=== PATIENT | male | born 1935 | race Caucasian/White ===

== ENCOUNTER 2016-10-23 19:27 | Observation (INO) | payer MEDICARE ==
[2016-10-23] MEDS ORDERED: SODIUM CHLORIDE 0.9% 500 ML IV STA (19:46)
[2016-10-23 20:26] LABS: Basophils % (A) 0 %; CH 31.6; CHCM 35.2; Eosinophils # (A) 0.1 k/uL (0-0.7); Eosinophils % (A) 1 %; HDW 2.41; HGB 13.6 gm/dL (13.0-17.5); Luc # (Auto) 0.07; Luc % (Auto) 1; Lymphocytes # (A) 0.8 k/uL (1.0-4.8); Lymphocytes % (A) 10 %; MCH 30.8 pg (25.0-35.0); MCHC 34.2 g/dL (31.0-37.0); MCV 90.1 fL (80.0-100.0); Mean Platelet Volume 7.1; Monocytes # (A) 0.5 k/uL (0-1.0); Monocytes % (A) 6 %; Neutrophils # (A) 6.1 k/uL (1.3-7.7); Neutrophils % (A) 82 %; RBC 4.43 m/uL (4.30-5.90); RDW 14.5 % (11.5-15.5); WBC 7.5 k/uL (3.8-10.6); WBC (Perox) 7.57
[2016-10-23 20:34] LABS: ALT 34 U/L (21-72); AST 18 U/L (17-59); Alkaline Phosphatase 80 U/L (38-126); Anion Gap 11 mmol/L; Blood Urea Nitrogen 13 mg/dL (9-20); Carbon Dioxide 28 mmol/L (22-30); Chloride 98 mmol/L (98-107); Glucose 106 mg/dL (74-99); Magnesium 1.8 mg/dL (1.6-2.3); Non-African American GFR(MDRD) >60 (>60 ml/min/1.73 sqM); Potassium 3.5 mmol/L (3.5-5.1); Sodium 137 mmol/L (137-145); Total Bilirubin 0.3 mg/dL (0.2-1.3); Total Protein 6.2 g/dL (6.3-8.2)
[2016-10-23 20:35] LABS: Glucose,Whole Blood 101 mg/dL (75-99)
--- NOTE | 2016-10-23 20:35 | XR ---
EXAMINATION TYPE: XR chest 2V DATE OF EXAM: 10/23/2016 COMPARISON: NONE HISTORY: Syncope and dizziness. TECHNIQUE: Frontal and lateral views of the chest are obtained. FINDINGS: There is chronic parenchymal change without suspicious focal air space opacity, pleural ef fusion, or pneumothorax seen. The cardiac silhouette size is upper limits of normal. The osseous s tructures are demineralized. Multilevel spurring in the spine is present. IMPRESSION: Chronic changes without acute pulmonary process.
[2016-10-23 20:44] LABS: Appearance,Urine Clear (Clear); Bilirubin,Urine Negative (Negative); Glucose,Urine (UA) Negative (Negative); Ketones,Urine Negative (Negative); Leukocyte Esterase,Urine Negative (Negative); Mucus,Urine Rare /hpf; Nitrite,Urine Negative (Negative); Particle Count 1519; Protein,Urine Negative (Negative); RBC,Urine 4 /hpf (0-5); Specific Gravity,Urine 1.015 (1.001-1.035); UA Billing (MACRO vs. MICRO) MICRO; Urobilinogen,Urine <2.0 mg/dL (<2.0); WBC,Urine 1 /hpf (0-5)
[2016-10-23 20:52] LABS: Creatine Kinase 64 U/L (55-170)
[2016-10-23 21:04] LABS: Creatine Kinase MB 1.2 ng/mL (0.0-2.4); Troponin I <0.012 ng/mL (0.000-0.034)
[2016-10-23 21:21] LABS: Partial Thromboplastin Time 24.2 sec (22.0-30.0); Prothrombin Time 10.2 sec (9.0-12.0)
--- NOTE | 2016-10-23 21:25 | CT ---
EXAMINATION TYPE: CT brain wo con DATE OF EXAM: 10/23/2016 HISTORY: Syncope. CT DLP: 995.9 mGycm. Automated Exposure Control for Dose Reduction was Utilized. TECHNIQUE: CT scan of the head is performed without contrast. COMPARISON: None. FINDINGS: There is no acute intracranial hemorrhage or midline shift identified. There is diffuse v entricular and sulcal prominence consistent with diffuse age-related cerebral atrophy. There is low- attenuation in the periventricular white matter consistent with chronic small vessel ischemic change. Probable prominent Virchow-Guillermo space inferior left external capsule on axial image 20 versus small lacunar infarct. Vascular calcification of distal internal carotid arteries is present bilaterally. Near-complete opacification left mastoid air cells is present. Soft tissue density bilateral external auditory canals is felt to reflect cerumen, left greater than right. Visualized paranasal sinuses ar e clear. Both lenses are thinned. IMPRESSION: No acute intracranial hemorrhage or midline shift. There is mild to moderate diffuse ag e-related cerebral atrophy and fairly moderate chronic small vessel ischemic change noted. Possible left-sided mastoiditis, clinical correlation advised.
[2016-10-23] MEDS ORDERED: NALOXONE 0.4 MG/ML 1 ML VIAL IV PRN (21:35)
[2016-10-23] MEDS ORDERED: ONDANSETRON 4 MG/2 ML VIAL IVP PRN (21:35)
[2016-10-23] MEDS ORDERED: ACETAMINOPHEN TAB 325 MG TAB PO PRN (21:35)
[2016-10-23] MEDS ORDERED: ASPIRIN 325 MG TAB PO STA (21:40)
[2016-10-23] MEDS ORDERED: DEXTROSE 5%-0.45% NACL 1,000 ML IV SCH (21:45)
[2016-10-23] MEDS ORDERED: ATORVASTATIN 20 MG TAB PO STA (21:46)
[2016-10-23] MEDS ORDERED: LISINOPRIL 5 MG TAB PO STA (21:46)
--- NOTE | 2016-10-23 21:56 | ED ---
General Adult HPI - General Chief complaint: Dizziness Stated complaint: Syncope Time Seen by Provider: 10/23/16 19:34 Source: patient, family, EMS, RN notes reviewed Mode of arrival: EMS Limitations: no limitations - History of Present Illness Initial comments: 81-year-old male history hypertension, hypercholesterolemia, and CAD presents with episode of lightheadedness. Patient states he was at a restaurant. An episode lasting approximately 10 minutes of lightheadedness and near syncopal. Patient is unable to state whether or not the room was spinning. Unable to specifically differentiate between vertigo and near syncope. Denies chest pain or shortness of breath. Denies palpitations. Denies fever or chills. Denies nausea vomiting or diarrhea. Patient has had several these episodes over the past several weeks. - Related Data Allergies Allergy/AdvReac Type Severity Reaction Status Date / Time No Known Allergies Allergy Verified 10/23/16 21:45 Review of Systems ROS Statement: Those systems with pertinent positive or pertinent negative responses have been documented in the HPI. ROS Other: All systems not noted in ROS Statement are negative. Past Medical History Past Medical History: Hyperlipidemia, Hypertension History of Any Multi-Drug Resistant Organisms: None Reported Past Surgical History: Orthopedic Surgery Additional Past Surgical History / Comment(s): bowel blockage, knee Past Psychological History: No Psychological Hx Reported Smoking Status: Former smoker Past Alcohol Use History: Occasional Past Drug Use History: None Reported General Exam Limitations: no limitations General appearance: alert, in no apparent distress Head exam: Present: atraumatic, normocephalic Eye exam: Present: normal appearance, PERRL. Absent: scleral icterus, conjunctival injection ENT exam: Present: normal exam, mucous membranes moist Neck exam: Present: normal inspection, tenderness Respiratory exam: Present: normal lung sounds bilaterally. Absent: respiratory distress, wheezes, rales Cardiovascular Exam: Present: regular rate, normal rhythm GI/Abdominal exam: Present: soft. Absent: distended, tenderness, guarding Extremities exam: Present: normal inspection, full ROM, normal capillary refill. Absent: pedal edema Neurological exam: Present: alert, oriented X3, CN II-XII intact, other (No ataxia). Absent: motor sensory deficit Psychiatric exam: Present: normal affect, normal mood Skin exam: Present: warm, dry. Absent: cyanosis, diaphoretic Course Vital Signs 10/23/16 10/23/16 19:41 20:49 Temperature 98.2 F Pulse Rate 71 67 Respiratory 16 16 Rate Blood Pressure 185/88 174/84 O2 Sat by Pulse 98 99 Oximetry - Reevaluation(s) Reevaluation #1: 10/23/16 21:52 Patient remains asymptomatic on reevaluation. Sinus rhythm on the monitor, nonfocal neurologic exam. 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 No associated symptoms. Patient is on several these episodes over the past several weeks. 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 Laboratory studies including CMP, CBC, cardiac enzymes, and urinalysis is unremarkable Chest x-ray shows no acute process, CT of the head shows moderate chronic ischemic changes and age associated cerebral atrophy. No acute intracranial hemorrhage or mass effect. Patient is asymptomatic on emergency department. Patient will be placed in observation for cardiology evaluation, as well as evaluation by neurology for concern of VBI. Diagnosis: Near-syncope - Lab Data Result diagrams: 10/23/16 20:15 10/23/16 20:15 Lab Results 10/23/16 10/23/16 10/23/16 Range/Units 20:15 20:15 20:15 WBC 7.5 (3.8-10.6) k/uL RBC 4.43 (4.30-5.90) m/uL Hgb 13.6 (13.0-17.5) gm/dL Hct 40.0 (39.0-53.0) % MCV 90.1 (80.0-100.0) fL MCH 30.8 (25.0-35.0) pg MCHC 34.2 (31.0-37.0) g/dL RDW 14.5 (11.5-15.5) % Plt Count 166 (150-450) k/uL Neutrophils % 82 % Lymphocytes % 10 % Monocytes % 6 % Eosinophils % 1 % Basophils % 0 % Neutrophils # 6.1 (1.3-7.7) k/uL Lymphocytes # 0.8 L (1.0-4.8) k/uL Monocytes # 0.5 (0-1.0) k/uL Eosinophils # 0.1 (0-0.7) k/uL Basophils # 0.0 (0-0.2) k/uL PT (9.0-12.0) sec INR (<1.2) APTT (22.0-30.0) sec Sodium 137 (137-145) mmol/L Potassium 3.5 (3.5-5.1) mmol/L Chloride 98 (98-107) mmol/L Carbon Dioxide 28 (22-30) mmol/L Anion Gap 11 mmol/L BUN 13 (9-20) mg/dL Creatinine 0.70 (0.66-1.25) mg/dL Est GFR (MDRD) Af Amer >60 (>60 ml/min/1.73 sqM) Est GFR (MDRD) Non-Af >60 (>60 ml/min/1.73 sqM) Glucose 106 H (74-99) mg/dL POC Glucose (mg/dL) (75-99) mg/dL POC Glu Associate Automation Engineer ID Calcium 9.0 (8.4-10.2) mg/dL Magnesium 1.8 (1.6-2.3) mg/dL Total Bilirubin 0.3 (0.2-1.3) mg/dL AST 18 (17-59) U/L ALT 34 (21-72) U/L Alkaline Phosphatase 80 (38-126) U/L Total Creatine Kinase 64 (55-170) U/L CK-MB (CK-2) 1.2 (0.0-2.4) ng/mL CK-MB (CK-2) Rel Index 1.9 Troponin I <0.012 (0.000-0.034) ng/mL Total Protein 6.2 L (6.3-8.2) g/dL Albumin 3.9 (3.5-5.0) g/dL Urine Color Urine Appearance (Clear) Urine pH (5.0-8.0) Ur Specific [place] (1.001-1.035) Urine Protein (Negative) Urine Glucose (UA) (Negative) Urine Ketones (Negative) Urine Blood (Negative) Urine Nitrite (Negative) Urine Bilirubin (Negative) Urine Urobilinogen (<2.0) mg/dL Ur Leukocyte Esterase (Negative) Urine RBC (0-5) /hpf Urine WBC (0-5) /hpf Urine Mucus (None) /hpf 10/23/16 10/23/16 10/23/16 Range/Units 20:15 20:24 20:33 WBC (3.8-10.6) k/uL RBC (4.30-5.90) m/uL Hgb (13.0-17.5) gm/dL Hct (39.0-53.0) % MCV (80.0-100.0) fL MCH (25.0-35.0) pg MCHC (31.0-37.0) g/dL RDW (11.5-15.5) % Plt Count (150-450) k/uL Neutrophils % % Lymphocytes % % Monocytes % % Eosinophils % % Basophils % % Neutrophils # (1.3-7.7) k/uL Lymphocytes # (1.0-4.8) k/uL Monocytes # (0-1.0) k/uL Eosinophils # (0-0.7) k/uL Basophils # (0-0.2) k/uL PT 10.2 (9.0-12.0) sec INR 1.0 (<1.2) APTT 24.2 (22.0-30.0) sec Sodium (137-145) mmol/L Potassium (3.5-5.1) mmol/L Chloride (98-107) mmol/L Carbon Dioxide (22-30) mmol/L Anion Gap mmol/L BUN (9-20) mg/dL Creatinine (0.66-1.25) mg/dL Est GFR (MDRD) Af Amer (>60 ml/min/1.73 sqM) Est GFR (MDRD) Non-Af (>60 ml/min/1.73 sqM) Glucose (74-99) mg/dL POC Glucose (mg/dL) 101 H (75-99) mg/dL POC Glu Associate Automation Engineer ID Rosamaria Lincoln Calcium (8.4-10.2) mg/dL Magnesium (1.6-2.3) mg/dL Total Bilirubin (0.2-1.3) mg/dL AST (17-59) U/L ALT (21-72) U/L Alkaline Phosphatase (38-126) U/L Total Creatine Kinase (55-170) U/L CK-MB (CK-2) (0.0-2.4) ng/mL CK-MB (CK-2) Rel Index Troponin I (0.000-0.034) ng/mL Total Protein (6.3-8.2) g/dL Albumin (3.5-5.0) g/dL Urine Color Yellow Urine Appearance Clear (Clear) Urine pH 6.0 (5.0-8.0) Ur Specific [place] 1.015 (1.001-1.035) Urine Protein Negative (Negative) Urine Glucose (UA) Negative (Negative) Urine Ketones Negative (Negative) Urine Blood Small H (Negative) Urine Nitrite Negative (Negative) Urine Bilirubin Negative (Negative) Urine Urobilinogen <2.0 (<2.0) mg/dL Ur Leukocyte Esterase Negative (Negative) Urine RBC 4 (0-5) /hpf Urine WBC 1 (0-5) /hpf Urine Mucus Rare H (None) /hpf Disposition Clinical Impression: Syncope, near Disposition: ADMITTED IP TO THIS HOSP Condition: Stable Referrals: Vitaliy Mckinney MD [Primary Care Provider] - 1-2 days Decision to Admit Reason: Admit from EC Decision Date: 10/23/16 Decision Time: 21:55
[2016-10-24 03:15] LABS: Creatine Kinase MB 1.4 ng/mL (0.0-2.4); Troponin I 0.014 ng/mL (0.000-0.034)
--- NOTE | 2016-10-24 08:51 | P.CRDCN ---
History of Present Illness Consult date: 10/24/16 Chief complaint: Dizziness and lightheadedness History of present illness: This is a pleasant 81-year-old gentleman with a past medical history significant for CAD and prior stenting with unknown details at this point, hypertension, and dyslipidemia, presented to the hospital complaining of dizziness and lightheadedness and near syncope. He was in his usual state of health where he was eating dinner in a restaurant yesterday when he felt dizzy and lightheaded and almost passing out. He did not have any symptoms of chest pain or discomfort for or shortness of breath and he did not have any syncope. He states that he has been experiencing more dizziness and lightheadedness lately. Reviewing the blood pressure during his hospitalization showed uncontrolled hypertension. 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 The cardiac enzymes were checked and came in to be unremarkable. The chest x-ray showed no acute abnormalities. Past Medical History Past Medical History: Hyperlipidemia, Hypertension History of Any Multi-Drug Resistant Organisms: None Reported Past Surgical History: Orthopedic Surgery Additional Past Surgical History / Comment(s): bowel blockage, knee Past Anesthesia/Blood Transfusion Reactions: No Reported Reaction Past Psychological History: No Psychological Hx Reported Smoking Status: Former smoker Past Alcohol Use History: Occasional Past Drug Use History: None Reported Medications and Allergies Home Medications Medication Instructions Recorded Confirmed Type Aspirin 81 mg PO DAILY 10/24/16 10/24/16 History Atorvastatin [Lipitor] 10 mg PO HS 10/24/16 10/24/16 History Ezetimibe [Ezetimibe] 5 mg PO QAM 10/24/16 10/24/16 History Lisinopril-Hctz 20-12.5 mg 12.5 mg PO QAM 10/24/16 10/24/16 History [Zestoretic 20-12.5] amLODIPine BES/OLMESARTAN MED 40 mg PO QAM 10/24/16 10/24/16 History [amLODIPine BES/OLMESARTAN MED 5-40 mg] Allergies Allergy/AdvReac Type Severity Reaction Status Date / Time No Known Allergies Allergy Verified 10/23/16 21:45 Physical Exam Vitals: Vital Signs Temp Pulse Pulse Resp BP BP Pulse Ox 10/24/16 08:11 98.0 F 56 L 16 163/75 98 10/24/16 02:37 97.5 F L 54 L 16 154/77 99 10/23/16 22:31 97.8 F 66 16 178/83 99 10/23/16 22:06 98.0 F 68 16 160/75 97 10/23/16 20:49 67 16 174/84 99 10/23/16 19:41 98.2 F 71 16 185/88 98 Intake and Output 10/23/16 10/24/16 10/24/16 22:59 06:59 14:59 Intake Total 500 Balance 500 Intake: Intake, IV Titration 500 Amount Dextrose 5%-0.45% NaCl 1, 500 000 ml @ 50 mls/hr IV . [facility] Rx#:[id number] Other: Voiding Method Toilet # Voids 1 Weight 70.307 kg - Constitutional General appearance: no acute distress - Respiratory Respiratory: bilateral: CTA - Cardiovascular Rhythm: regular Heart sounds: normal: S1, S2 Results 10/23/16 20:15 10/23/16 20:15 Cardiac Enzymes 10/23/16 10/23/16 10/24/16 Range/Units 20:15 20:15 02:01 AST 18 (17-59) U/L CK-MB (CK-2) 1.2 1.4 (0.0-2.4) ng/mL Troponin I <0.012 0.014 (0.000-0.034) ng/mL Coagulation 10/23/16 Range/Units 20:15 PT 10.2 (9.0-12.0) sec APTT 24.2 (22.0-30.0) sec CBC 10/23/16 Range/Units 20:15 WBC 7.5 (3.8-10.6) k/uL RBC 4.43 (4.30-5.90) m/uL Hgb 13.6 (13.0-17.5) gm/dL Hct 40.0 (39.0-53.0) % Plt Count 166 (150-450) k/uL Comprehensive Metabolic Panel 10/23/16 Range/Units 20:15 Sodium 137 (137-145) mmol/L Potassium 3.5 (3.5-5.1) mmol/L Chloride 98 (98-107) mmol/L Carbon Dioxide 28 (22-30) mmol/L BUN 13 (9-20) mg/dL Creatinine 0.70 (0.66-1.25) mg/dL Glucose 106 H (74-99) mg/dL Calcium 9.0 (8.4-10.2) mg/dL AST 18 (17-59) U/L ALT 34 (21-72) U/L Alkaline Phosphatase 80 (38-126) U/L Total Protein 6.2 L (6.3-8.2) g/dL Albumin 3.9 (3.5-5.0) g/dL Current Medications Generic Name Dose Route Start Last Admin Trade Name Freq PRN Reason Stop Dose Admin Acetaminophen 650 mg 10/23/16 21:35 Tylenol Tab PO Q6HR PRN Mild Pain or Fever > 100.5 Dextrose/Sodium Chloride 1,000 mls @ 50 mls/hr 10/23/16 21:45 10/23/16 22:32 Dextrose 5%-1/2ns Iv Soln IV 50 mls/hr .Q20H [facility]AT[facility] Administration Naloxone HCl 0.2 mg 10/23/16 21:35 Narcan IV Q2M PRN Opioid Reversal Ondansetron HCl 4 mg 10/23/16 21:35 Zofran IVP Q8HR PRN Nausea And Vomiting Intake and Output 10/23/16 10/24/16 10/24/16 22:59 06:59 14:59 Intake Total 500 Balance 500 Intake: Intake, IV Titration 500 Amount Dextrose 5%-0.45% NaCl 1, 500 000 ml @ 50 mls/hr IV . Q20H [facility] Rx#:[id number] Other: Voiding Method Toilet # Voids 1 Weight 70.307 kg 10/23/16 20:15 10/23/16 20:15 Assessment and Plan Plan: This is a pleasant 81-year-old gentleman with known CAD and prior stenting, hypertension, dyslipidemia, was admitted to the hospital was dizziness and lightheadedness and presyncope. The blood pressure in the hospital has been elevated but the blood pressure medications at home were not resume. I will resume that. We'll continue monitor the blood pressure and adjust medication accordingly. Beside that I will obtain orthostatic blood pressure on him. I would get a carotid duplex study and also an echocardiogram was Doppler. 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 We will continue following up with him and thank you for allowing us participate in his care
[2016-10-24 08:56] LABS: Creatine Kinase 63 U/L (55-170)
[2016-10-24 09:07] LABS: Creatine Kinase MB 1.3 ng/mL (0.0-2.4); Troponin I <0.012 ng/mL (0.000-0.034)
[2016-10-24] MEDS ORDERED: amLODIPine 5 MG TAB PO SCH (11:00)
[2016-10-24] MEDS: LOSARTAN 50 MG TAB PO SCH (11:48)
[2016-10-24] MEDS: EZETIMIBE 10 MG TAB PO SCH (11:49)
[2016-10-24] MEDS: ASPIRIN 81 MG CHEW PO SCH (11:49)
[2016-10-24] MEDS: LISINOPRIL-HCTZ 20-12.5 MG 1 EACH TAB PO SCH (11:49)
--- NOTE | 2016-10-24 13:42 | US ---
EXAMINATION TYPE: US carotid duplex BILAT DATE OF EXAM: 10/24/2016 COMPARISON: NONE CLINICAL HISTORY: pre syncope. EXAM MEASUREMENTS: RIGHT: Peak Systolic Velocity (PSV) cm/sec ----- Right CCA: 77.6 ----- Right ICA: 139.2 ----- Right ECA: 127.6 ICA/CCA ratio: 1.8 RIGHT: End Diastole cm/sec ----- Right CCA: 9.5 ----- Right ICA: 0.0 ----- Right ECA: 14.5 LEFT: Peak Systolic Velocity (PSV) cm/sec ----- Left CCA: 96.9 ----- Left ICA: 111.3 ----- Left ECA: 147.4 ICA/CCA ratio: 1.1 LEFT: End Diastole cm/sec ----- Left CCA: 10.2 ----- Left ICA: 12.8 ----- Left ECA: 11.7 VERTEBRALS (direction of flow): Right Vertebral: antegrade Left Vertebral: antegrade IMPRESSION: 1. 50-69% by diameter stenosis of the proximal right ICA. 2. Elevated flow velocities, both ECAs. Criteria for Assigning % of Stenosis / Diameter reduction (Estimation based on the indirect measurements of the internal carotid artery velocities (ICA PSV). 1. Normal (no stenosis)=ICA PSV < 125 cm/s: ratio < 2.0: ICA EDV<40 cm/s. 2. Less than 50% stenosis=ICA PSV < 125 cm/s: ratio < 2.0: ICA EDV<40 cm/s. 3. 50 to 69% stenosis=ICA PSV of 125 to 230 cm/s: ration 2.0 ? 4.0: ICA EDV 40-100 cm/s. 4. Greater than 70% stenosis to near occlusion= ICA PSV > 230 cm/s: ratio > 4.0: ICA EDV > 100 cm/s. 5. Near occlusion= ICA PSV velocities may be low or undetectable: variable ratio and ICA EDV. 6. Total occlusion=unable to detect flow.
--- NOTE | 2016-10-24 14:19 | P.HPIM ---
History of Present Illness H&P Date: 10/24/16 Chief Complaint: near-syncope This is an 81-year-old male one of Dr. 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 Review of Systems Constitutional: Denies anorexia, Denies lethargy, Denies malaise, Denies weight gain, Denies weight loss Eyes: denies blurred vision, denies bulging eye, denies decreased vision, denies diplopia Ears: bilateral: decreased hearing Ears, nose, mouth and throat: Denies dysphagia, Denies neck lump, Denies swelling in throat, Denies sore throat, Denies vertigo Cardiovascular: Reports high blood pressure, Denies chest pain, Denies dyspnea on exertion, Denies edema, Denies paroxysmal nocturnal dyspnea, Denies phlebitis , Denies rapid heart beat, Denies shortness of breath Respiratory: Denies congestion, Denies cough, Denies cough with sputum, Denies home oxygen, Denies respiratory infections, Denies sleep apnea, Denies snoring Gastrointestinal: Denies abdominal pain, Denies bloating, Denies BRBPR, Denies heartburn, Denies hematemesis, Denies melena, Denies nausea, Denies vomiting Genitourinary: Denies dysuria, Denies nocturia, Denies polyuria Musculoskeletal: Denies myalgias Musculoskeletal: absent: ankle pain, ankle stiffness, ankle swelling, elbow pain , elbow stiffness, elbow swelling, foot pain, foot stiffness, foot swelling, hand pain, hand stiffness, hand swelling, hip pain, hip stiffness, hip swelling , knee pain, knee stiffness, knee swelling, shoulder pain, shoulder stiffness, shoulder swelling, wrist pain, wrist stiffness, wrist swelling Integumentary: Denies pruritus, Denies rash Neurological: Denies numbness, Denies weakness Psychiatric: Denies anxiety, Denies depression Endocrine: Denies fatigue, Denies weight change Past Medical History Past Medical History: Coronary Artery Disease (CAD), Hyperlipidemia, Hypertension, Neurologic Disorder (trigeminal neuralgia.), Osteoarthritis (OA) History of Any Multi-Drug Resistant Organisms: None Reported Past Surgical History: Bowel Resection, Orthopedic Surgery Additional Past Surgical History / Comment(s): Bilateral cataract surgery, left knee IND due to staph infection, exploratory laparotomy with bowel resection secondary to bowel obstruction. Past Anesthesia/Blood Transfusion Reactions: No Reported Reaction Past Psychological History: No Psychological Hx Reported Smoking Status: Never smoker Past Alcohol Use History: Occasional Past Drug Use History: None Reported - Past Family History Mother Family Medical History: Hypertension (mother at age of 87 from hypertension.) Father Family Medical History: CVA/TIA (father at age of 86 from CVA.) Brother(s) Family Medical History: No Reported History (patient had one brother who at age 95 from old age.) Sister(s) Family Medical History: No Reported History (patient had one sister who at age of 84 from old age.) Daughter(s) Family Medical History: No Reported History (patient has one daughter no major medical problems.) Son(s) Family Medical History: No Reported History (patient has one son no major medical problems.) Medications and Allergies Home Medications Medication Instructions Recorded Confirmed Type Aspirin 81 mg PO DAILY 10/24/16 10/24/16 History Atorvastatin [Lipitor] 10 mg PO HS 10/24/16 10/24/16 History Ezetimibe [Ezetimibe] 5 mg PO QAM 10/24/16 10/24/16 History Lisinopril-Hctz 20-12.5 mg 1 tab PO QAM 10/24/16 10/24/16 History [Zestoretic 20-12.5] amLODIPine BES/OLMESARTAN MED 1 tab PO QAM 10/24/16 10/24/16 History [amLODIPine BES/OLMESARTAN MED 5-40 mg] carBAMazepine 200 mg PO BID 10/24/16 10/24/16 History Allergies Allergy/AdvReac Type Severity Reaction Status Date / Time No Known Allergies Allergy Verified 10/24/16 09:00 Physical Exam Vitals: Vital Signs Temp Pulse Pulse Resp BP BP Pulse Ox 10/24/16 08:11 98.0 F 56 L 16 163/75 98 10/24/16 02:37 97.5 F L 54 L 16 154/77 99 10/23/16 22:31 97.8 F 66 16 178/83 99 10/23/16 22:06 98.0 F 68 16 160/75 97 10/23/16 20:49 67 16 174/84 99 10/23/16 19:41 98.2 F 71 16 185/88 98 Intake and Output 10/23/16 10/24/16 10/24/16 22:59 06:59 14:59 Intake Total 500 Balance 500 Intake: Intake, IV Titration 500 Amount Dextrose 5%-0.45% NaCl 1, 500 000 ml @ 50 mls/hr IV . Q20H [facility] Rx#:[id number] Other: Voiding Method Toilet # Voids 1 Weight 70.307 kg - Constitutional General appearance: no acute distress - EENT Eyes: anicteric sclerae, EOMI, PERRLA, no ptosis, no scleral icterus, normal appearance ENT: hearing grossly normal, NA/AT, normal oropharynx, no thrush Ears: bilateral: normal - Neck Neck: no lymphadenopathy, normal ROM, no rigidity, no stridor, no thyromegaly Carotids: bilateral: upstroke delayed Thyroid: bilateral: normal size - Respiratory Respiratory: bilateral: diminished, negative: dullness, rales, rhonchi, wheezing , prolonged expiration - Cardiovascular Rhythm: regular Heart sounds: normal: S1, S2 Abnormal Heart Sounds: systolic murmur, no rub, no S3 Gallop, no S4 Gallop, no click - Gastrointestinal General gastrointestinal: normal bowel sounds, no rigid, no scaphoid, soft, no splenomegaly, no tenderness, no umbilical hernia, no ventral hernia - Genitourinary Male genitourinary: enlarged prostate - Integumentary Integumentary: normal, normal turgor - Neurologic Neurologic: CNII-XII intact - Musculoskeletal Musculoskeletal: strength equal bilaterally - Psychiatric Psychiatric: A&O x's 3, appropriate affect, intact judgment & insight Results CBC & Chem 7: 10/23/16 20:15 10/23/16 20:15 Labs: Abnormal Lab Results - Last 24 Hours (Table) 10/23/16 10/23/16 10/23/16 Range/Units 20:15 20:15 20:24 Lymphocytes # 0.8 L (1.0-4.8) k/uL Glucose 106 H (74-99) mg/dL POC Glucose (mg/dL) (75-99) mg/dL Total Protein 6.2 L (6.3-8.2) g/dL Urine Blood Small H (Negative) Urine Mucus Rare H (None) /hpf 10/23/16 Range/Units 20:33 Lymphocytes # (1.0-4.8) k/uL Glucose (74-99) mg/dL POC Glucose (mg/dL) 101 H (75-99) mg/dL Total Protein (6.3-8.2) g/dL Urine Blood (Negative) Urine Mucus (None) /hpf Thrombosis Risk Factor Assmnt - DVT/VTE Prophylaxis DVT/VTE Prophylaxis: Pharmacologic Prophylaxis ordered, Mechanical Prophylaxis ordered - Choose All That Apply Any of the Below Risk Factors Present?: No Other Risk Factors: Yes Each Risk Factor Represents 3 Points: Age 75 years or older Thrombosis Risk Factor Assessment Total Risk Factor Score: 3 Thrombosis Risk Factor Assessment Level: Moderate Risk Assessment and Plan Plan: Assessment and plan: 1. Near syncope and a patient with a prior history of CAD and an EKG showing trifascicular block, patient was admitted to the hospital, telemetry, cardiac enzymes were negative, echocardiogram, ultrasound of the carotids, patient will need to go for an event recorder when he leaves the hospital, cardiology consultation. 2. History of CAD post-PCI. Into the patient on aspirin 81 mg once every day, Lipitor 10 mg orally once every day, check echocardiogram. 3. Hypertension and hypertensive cardiovascular disease. Continue losartan 150 mg orally once every day, amlodipine 5 mg orally once every day, patient is currently on lisinopril 20/12.5 mg orally once every day. 4. Hyperlipidemia. Continue Lipitor 10 mg orally once every day. 5. Trigeminal neuralgia. Continue patient on carbamazepine 200 mg orally twice every day. 6. C-spine fracture by history in October 2015. Stable at this time. 7. DVT prophylaxis. Lovenox 40 mg subcutaneously every 24 hours. 8. GI prophylaxis. Continue PPI. 9. Admit as observation. 10. Patient is full code.
--- NOTE | 2016-10-24 15:21 | P.CONS ---
History of Present Illness - Reason for Consult Consult date: 10/24/16 Dizziness - History of Present Illness This Is an 81-year-old male being evaluated by the neurology service for a complaint of dizziness and presyncope. He does have a significant Cardiac history for which he is being monitored. He does give a long history of short-lived episodes that occur periodically and are more consistent with vertigo. This time he gives a history of several episodes of happening over the course of the afternoon or there was dizziness lightheadedness and feeling off balance. Computed tomography scan of the brain showed no acute intracranial abnormalities. It did show some cerebral atrophy and chronic small vessel ischemic changes. There was also an incidental finding of possible left mastoiditis. Doppler showed 50-69% proximal right internal carotid artery stenosis within decreased velocities bilateral of the external carotid arteries. Review of Systems All systems: negative Past Medical History Past Medical History: Coronary Artery Disease (CAD), Hyperlipidemia, Hypertension, Neurologic Disorder (trigeminal neuralgia.), Osteoarthritis (OA) History of Any Multi-Drug Resistant Organisms: None Reported Past Surgical History: Bowel Resection, Orthopedic Surgery Additional Past Surgical History / Comment(s): Bilateral cataract surgery, left knee IND due to staph infection, exploratory laparotomy with bowel resection secondary to bowel obstruction. Past Anesthesia/Blood Transfusion Reactions: No Reported Reaction Past Psychological History: No Psychological Hx Reported Smoking Status: Never smoker Past Alcohol Use History: Occasional Past Drug Use History: None Reported - Past Family History Mother Family Medical History: Hypertension (mother at age of 87 from hypertension.) Father Family Medical History: CVA/TIA (father at age of 86 from CVA.) Brother(s) Family Medical History: No Reported History (patient had one brother who at age 95 from old age.) Sister(s) Family Medical History: No Reported History (patient had one sister who at age of 84 from old age.) Daughter(s) Family Medical History: No Reported History (patient has one daughter no major medical problems.) Son(s) Family Medical History: No Reported History (patient has one son no major medical problems.) Medications and Allergies Home Medications Medication Instructions Recorded Confirmed Type Aspirin 81 mg PO DAILY 10/24/16 10/24/16 History Atorvastatin [Lipitor] 10 mg PO HS 10/24/16 10/24/16 History Ezetimibe [Ezetimibe] 5 mg PO QAM 10/24/16 10/24/16 History Lisinopril-Hctz 20-12.5 mg 1 tab PO QAM 10/24/16 10/24/16 History [Zestoretic 20-12.5] amLODIPine BES/OLMESARTAN MED 1 tab PO QAM 10/24/16 10/24/16 History [amLODIPine BES/OLMESARTAN MED 5-40 mg] carBAMazepine 200 mg PO BID 10/24/16 10/24/16 History Allergies Allergy/AdvReac Type Severity Reaction Status Date / Time No Known Allergies Allergy Verified 10/24/16 09:00 Physical Exam Vitals: Vital Signs Temp Pulse Pulse Resp BP BP Pulse Ox 10/24/16 14:25 97.7 F 64 14 151/67 96 10/24/16 12:00 62 14 10/24/16 10:45 98.6 F 62 14 176/77 96 10/24/16 08:11 98.0 F 56 L 16 163/75 98 10/24/16 02:37 97.5 F L 54 L 16 154/77 99 10/23/16 22:31 97.8 F 66 16 178/83 99 10/23/16 22:06 98.0 F 68 16 160/75 97 10/23/16 20:49 67 16 174/84 99 10/23/16 19:41 98.2 F 71 16 185/88 98 Intake and Output 10/24/16 10/24/16 10/24/16 06:59 14:59 22:59 Intake Total 500 Balance 500 Intake: Intake, IV Titration 500 Amount Dextrose 5%-0.45% NaCl 1, 500 000 ml @ 50 mls/hr IV . Q20H [facility] Rx#:[id number] Other: Voiding Method Toilet # Voids 1 3 Weight 70.307 kg Patient Weight 10/25/16 06:59 Weight 70.307 kg - Constitutional General appearance: average body habitus, cooperative, no acute distress - EENT Abnormal dilation bilaterally. Eyes: no abnormal pupil, EOMI, PERRLA, no ptosis ENT: hard of hearing Ears: bilateral: normal - Neck Neck: normal ROM, no rigidity - Respiratory Respiratory: negative: prolonged expiration, prolonged inspiration - Cardiovascular Rhythm: regular - Gastrointestinal General gastrointestinal: no distended, no tenderness - Neurologic Is alert and oriented 3. Speech-language are normal. There is no facial asymmetry. There is full in bilateral upper lower extremities. There is no sensory deficit. No tremors or seizure-like activities are seen. Romberg is negative. Results CBC & Chem 7: 10/23/16 20:15 10/23/16 20:15 Labs: Abnormal Lab Results - Last 24 Hours (Table) 10/23/16 10/23/16 10/23/16 Range/Units 20:15 20:15 20:24 Lymphocytes # 0.8 L (1.0-4.8) k/uL Glucose 106 H (74-99) mg/dL POC Glucose (mg/dL) (75-99) mg/dL Total Protein 6.2 L (6.3-8.2) g/dL Urine Blood Small H (Negative) Urine Mucus Rare H (None) /hpf 10/23/16 Range/Units 20:33 Lymphocytes # (1.0-4.8) k/uL Glucose (74-99) mg/dL POC Glucose (mg/dL) 101 H (75-99) mg/dL Total Protein (6.3-8.2) g/dL Urine Blood (Negative) Urine Mucus (None) /hpf Assessment and Plan (1) CAD (coronary artery disease) Status: Chronic (2) Vertigo Status: Chronic (3) Hypertension Status: Chronic (4) Hyperlipemia Status: Chronic (5) Trigeminal neuralgia Status: Chronic (6) Mastoiditis of left side Status: Suspected (7) Syncope, near Status: Acute (8) Carotid stenosis Status: Suspected Plan: The patient's dizziness and presyncopal episodes are likely cardiovascular in nature. Cardiology is following. Again his CT showed no acute intracranial abnormalities but did show some left mastoiditis that can contribute to his dizziness and vertigo. Recommend outpatient follow-up with ear nose and throat. He said he is establish with a local provider who also prescribes his hearing aids. We can see him on an outpatient basis for better treatment for his symptomatic trigeminal neuralgia. Patient testing for central versus peripheral etiologies for his chronic vertigo can also be done in outpatient setting. He is otherwise cleared from a neurological standpoint. We can be consulted on as-needed basis for any further neurological concerns. I have reviewed the history and physical on the above patient. I have reviewed the above note, and agree.
[2016-10-24] MEDS ORDERED: hydrALAZINE HCL 20 MG/ML 1 ML VIAL IVP PRN (18:34)
[2016-10-24] MEDS ORDERED: ATORVASTATIN 10 MG TAB PO SCH (21:00)
[2016-10-24] MEDS: amLODIPine 5 MG TAB PO SCH (21:00)
[2016-10-25 07:31] LABS: Basophils % (A) 0 %; CH 31.5; CHCM 35.1; Eosinophils # (A) 0.1 k/uL (0-0.7); Eosinophils % (A) 1 %; HDW 2.41; Luc # (Auto) 0.14; Luc % (Auto) 2; Lymphocytes # (A) 1.4 k/uL (1.0-4.8); Lymphocytes % (A) 20 %; MCHC 33.3 g/dL (31.0-37.0); MCV 90.1 fL (80.0-100.0); Mean Platelet Volume 7.1; Monocytes # (A) 0.6 k/uL (0-1.0); Monocytes % (A) 8 %; Neutrophils # (A) 4.8 k/uL (1.3-7.7); Neutrophils % (A) 69 %; RBC 4.67 m/uL (4.30-5.90); RDW 14.4 % (11.5-15.5); WBC (Perox) 7.03
[2016-10-25 07:37] VITALS: RESP 18
[2016-10-25 07:53] LABS: Anion Gap 8 mmol/L; Blood Urea Nitrogen 16 mg/dL (9-20); Calcium 8.9 mg/dL (8.4-10.2); Carbon Dioxide 27 mmol/L (22-30); Chloride 105 mmol/L (98-107); Glucose 114 mg/dL (74-99); Non-African American GFR(MDRD) >60 (>60 ml/min/1.73 sqM); Potassium 3.4 mmol/L (3.5-5.1); Sodium 140 mmol/L (137-145)
[2016-10-25] MEDS: amLODIPine 5 MG TAB PO SCH (08:39)
[2016-10-25] MEDS: ASPIRIN 81 MG CHEW PO SCH (08:40)
[2016-10-25] MEDS: LISINOPRIL-HCTZ 20-12.5 MG 1 EACH TAB PO SCH (08:42)
[2016-10-25] MEDS: LOSARTAN 50 MG TAB PO SCH (08:42)
[2016-10-25] MEDS: EZETIMIBE 10 MG TAB PO SCH (08:42)
[2016-10-25] MEDS ORDERED: ENOXAPARIN 40 MG/0.4 ML SYRINGE SQ SCH (09:00)
[2016-10-25] MEDS ORDERED: POTASSIUM CHLORIDE ER 20 MEQ TAB.ER PO STA (09:55)
[2016-10-25 11:37] VITALS: BP 133/72; PULSE 68; TEMP 97.5
--- NOTE | 2016-10-25 12:40 | ECHOF ---
Referral Reason:pre syncope MEASUREMENTS -------- HEIGHT: 165.1 cm WEIGHT: 70.3 kg BP: 135/64 RVIDd: 3.1 cm (< 3.3) IVSd: 1.1 cm (0.6 - 1.1) LVIDd: 4.2 cm (3.9 - 5.3) LVPWd: 1.1 cm (0.6 - 1.1) IVSs: 1.4 cm LVIDs: 2.3 cm LVPWs: 1.5 cm LA Diam: 3.1 cm (2.7 - 3.8) LAESV Index (A-L): 29.20 ml/m Ao Diam: 3.1 cm (2.0 - 3.7) AV Cusp: 1.8 cm (1.5 - 2.6) LA Diam: 3.7 cm (2.7 - 3.8) MV EXCURSION: 21.518 mm (> 18.000) MV EF SLOPE: 49 mm/s (70 - 150) EPSS: 0.2 cm MV E Johnathon: 0.59 m/s MV DecT: 249 ms MV A Johnathon: 0.87 m/s MV E/A Ratio: 0.67 RAP: 5.00 mmHg RVSP: 21.84 mmHg FINDINGS -------- Sinus rhythm. This was a technically adequate study. There is borderline concentric left ventricular hypertrophy. Overall left ventricular systolic function is normal with, an EF between 55 - 60 %. The right ventricle is normal in size. LA is midly dilated 29-33ml/m2. The right atrial size is normal. There is mild aortic valve sclerosis. There is no evidence of aortic regurgitation. Mild mitral annular calcification present. Mild mitral regurgitation is present. Mild tricuspid regurgitation present. There is no evidence of pulmonary hypertension. The right ventricular systolic pressure, as measured by Doppler, is 21.84mmHg. There is no pulmonic regurgitation present. The aortic root size is normal. There is no pericardial effusion. CONCLUSIONS -------- 1. There is borderline concentric left ventricular hypertrophy. 2. There is no pulmonic regurgitation present. 3. The aortic root size is normal. 4. There is no pericardial effusion. 5. Overall left ventricular systolic function is normal with, an EF between 55 - 60 %. 6. LA is midly dilated 29-33ml/m2. 7. There is mild aortic valve sclerosis. 8. Mild mitral annular calcification present. 9. Mild mitral regurgitation is present. 10. Mild tricuspid regurgitation present. 11. There is no evidence of pulmonary hypertension. 12. The right ventricular systolic pressure, as measured by Doppler, is 21.84mmHg. INSULATION WORKER APPRENTICE: Kelly Eden RDCS
--- NOTE | 2016-10-25 13:00 | P.PN ---
Subjective This is an 81-year-old gentleman with a past history significant for CAD and prior stenting, hypertension and dyslipidemia. He presented to the hospital complains of dizziness and lightheadedness. He was seen yesterday in consultation with Dr. Seals. Carotid duplex and echocardiogram were ordered both unremarkable. His EKG indicates sinus rhythm consistent with a first- degree AV block, right bundle branch block and left anterior fascicular block. He has had no further episodes of syncope overnight or events indicated on cardiac tracings. Objective - Vital Signs Vital signs: Vital Signs Temp 97.5 F L 10/25/16 11:36 Pulse 68 10/25/16 11:36 Resp 18 10/25/16 11:36 BP 133/72 10/25/16 11:36 Pulse Ox 96 10/25/16 11:36 Intake & Output 10/24/16 10/25/16 10/25/16 18:59 06:59 18:59 Intake Total 236 436 Balance 236 436 Weight 70.307 kg Intake: Oral 236 436 Other: Voiding Method Toilet Toilet Toilet # Voids 3 1 - Exam GENERAL: Well-appearing, well-nourished and in no acute distress. NECK: Supple without JVD or thyromegaly. LUNGS: Breath sounds clear to auscultation bilaterally and equal. No wheezes, rales or rhonchi. HEART: Regular rate and rhythm without murmurs, rubs or gallops. S1 and S2 heard. ABDOMEN: Soft, nontender, normoactive bowel sounds. EXTREMITIES: Normal range of motion, no edema. No clubbing or cyanosis. Peripheral pulses intact and strong. - Labs CBC & Chem 7: 10/25/16 06:40 10/25/16 06:37 Labs: Abnormal Lab Results - Last 24 Hours (Table) 10/25/16 Range/Units 06:37 Potassium 3.4 L (3.5-5.1) mmol/L Glucose 114 H (74-99) mg/dL Assessment and Plan Plan: ASSESSMENT 1. Near syncope. 2. History of CAD with stenting. 3. Essential hypertension. 4. Dyslipidemia. PLAN Echocardiogram indicates preserved left ventricular function with an ejection fraction of 55-60%, borderline concentric left ventricular hypertrophy, no pericardial effusion, aortic valve sclerosis, I'll mitral regurgitation, mild tricuspid regurgitation and no evidence of pulmonary hypertension with a right ventricular systolic pressure 21.84 mmHg. Carotid duplex findings indicate a 50- 69% stenosis of the proximal right ICA. Stress echo is negative. These findings are not indicative of a cause for the patient's near-syncope. Therefore this patient will be discharged home with a 30 day event monitor to rule out any high degree A-V blockage. Patient is to follow-up with Dr. Aquino.
--- NOTE | 2016-10-25 13:38 | P.DS ---
Providers Date of admission: 10/23/16 21:39 Expected date of discharge: 10/25/16 Attending physician: Rachel Dodd Consults: 10/23/16 21:37 Consult Physician Urgent Consulting Provider: Jose Devlin Consult Reason/Comments: Near syncope Do you want consulting provider notified?: Yes, Notify in am 10/23/16 21:39 Consult Physician Urgent Consulting Provider: Mei Cobos Consult Reason/Comments: Dizziness/lightheadedness Do you want consulting provider notified?: Yes, Notify in am Primary care physician: Vitaliy Hank [facility] Course: This is an 81-year-old male one of Dr. 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 10/25: Patient was also seen by neurology with concern for left mastoiditis on CAT scan which can contribute to his dizziness and vertigo and recommended follow-up with ear nose and throat. Plan to follow-up with neurology regarding treatment for his symptomatic trigeminal neuralgia. Stress echo test was negative for inducible ischemia. Echocardiogram revealed EF of 55-60% with borderline concentric left ventricular hypertrophy, mild aortic valve sclerosis , mild mitral regurgitation, mild tricuspid regurgitation, no evidence of pulmonary hypertension. Carotid ultrasound showed 50-69% stenosis of the proximal right ICA. Patient has been evaluated by cardiology with plan for 30 day event monitor to rule out high degree AV block. Patient is to follow with Dr. Hardy. Patient will be discharged home today in stable condition. He is currently denying any chest pain or shortness of breath. Discharge diagnoses: 1. Near syncope and a patient with a prior history of CAD and an EKG showing trifascicular block rule out possible AV block with 30 day event monitor 2. History of CAD post-PCI. 3. Hypertension and hypertensive cardiovascular disease. 4. Hyperlipidemia. 5. Trigeminal neuralgia. 6. C-spine fracture by history in October 2015. Stable at this time. Discharge plan: Return home Impression and plan of care have been directed as dictated by the signing physician. Ntaacha Sauceda nurse practitioner acting as scribe for signing physician. Patient Condition at Discharge: Good Plan - Discharge Summary New Discharge Prescriptions: Continue Aspirin 81 mg PO DAILY Ezetimibe 5 mg PO QAM Atorvastatin [Lipitor] 10 mg PO HS amLODIPine BES/OLMESARTAN MED [amLODIPine BES/OLMESARTAN MED 5-40 mg] 1 tab PO QAM Lisinopril-Hctz 20-12.5 mg [Zestoretic 20-12.5] 1 tab PO QAM carBAMazepine 200 mg PO BID Discharge Medication List Aspirin 81 mg PO DAILY 10/24/16 [History] Atorvastatin [Lipitor] 10 mg PO HS 10/24/16 [History] Ezetimibe 5 mg PO QAM 10/24/16 [History] Lisinopril-Hctz 20-12.5 mg [Zestoretic 20-12.5] 1 tab PO QAM 10/24/16 [History] amLODIPine BES/OLMESARTAN MED [amLODIPine BES/OLMESARTAN MED 5-40 mg] 1 tab PO QAM 10/24/16 [History] carBAMazepine 200 mg PO BID 10/24/16 [History] Follow up Appointment(s)/Referral(s): [facility] [Provider Group] - 1 Week David Jo DO [Doctor of Osteopathic Medicine] - 1 Week Vitaliy Mckinney MD [Primary Care Provider] - 1 Week Mei Cobos MD [STAFF PHYSICIAN] - 3 Weeks Jac Aquino MD [STAFF PHYSICIAN] - 1 Week Discharge Disposition: HOME SELF-CARE
--- NOTE | 2016-10-25 16:08 | EST ---
Referral Reason:chest pain MEASUREMENTS -------- HEIGHT: 165.1 cm WEIGHT: 70.3 kg BP: 120/60 FINDINGS -------- Sinus rhythm. Utilizing the standard Presley protocol the patient was exercised for 6 minutes, seconds, achieving a maximum heart rate of 130 , which is 95% of predicted maximal heart rate. There was physiologic heart rate and blood pressure response to exercise. Max Heart Rate: 130 % of Max Predicted Heart Rate: 95 Rest Heart Rate: 73 Rest BP: 142/04 Max BP: 181/64 Mets Achieved: 7.1 Sinus rhythm. The underlying rhythm is normal sinus rhythm with an average heart rate of with a Right Bundle Branch Block. In response to stress, the ECG showed no diagnostic ST-T wave changes (see exercise report for details). LV size, wall thickness and systolic function are normal, with an EF of 60%. Echo images were acquired at peak stress which demonstrated appropriate augmentation of all left ventricular segments with slight decrease in cavity size. CONCLUSIONS -------- 1. Sinus rhythm. 2. Sinus rhythm. 3. The underlying rhythm is normal sinus rhythm with an average heart rate of with a Right Bundle Branch Block. 4. In response to stress, the ECG showed no diagnostic ST-T wave changes (see exercise report for details). 5. LV size, wall thickness and systolic function are normal, with an EF of 60%. 6. Echo images were acquired at peak stress which demonstrated appropriate augmentation of all left ventricular segments with slight decrease in cavity size. 7. No 2D echocardiographic evidence of inducible ischemia to achieved workload. ASSOCIATE SPA DIRECTOR: Kelly Eden RDCS MTDD
== END 2016-10-25 15:04 | disposition home or self-care (01) ==
LOC: EC 19:27 → 3SUR 21:39 → 3OBS 10-24 10:46
PROVIDERS: ADMIT Internal Medicine; ATTEND Internal Medicine
DX: R55 Syncope and collapse (principal); E78.5 Hyperlipidemia, unspecified; G50.0 Trigeminal neuralgia; I11.9 Hypertensive heart disease without heart failure; I25.10 Atherosclerotic heart disease of native coronary artery without angina pectoris; I45.3 Trifascicular block; M19.90 Unspecified osteoarthritis, unspecified site; I65.23 Occlusion and stenosis of bilateral carotid arteries; H91.90 Unspecified hearing loss, unspecified ear; Z95.5 Presence of coronary angioplasty implant and graft; Z87.891 Personal history of nicotine dependence; Z79.899 Other long term (current) drug therapy; Z79.82 Long term (current) use of aspirin; Z82.49 Family history of ischemic heart disease and other diseases of the circulatory system; Z82.3 Family history of stroke
CPT/HCPCS: 96374; 96361; 99285; 36415; 94760; 93005; 93017; 93306; 93350; 80053; 80048; 82550 ×2; 82553 ×2; 83735; 84484 ×2; 85025 ×2; 85610; 85730; 81001; 71020; 93880; 70450; G0378 ×3; J0360

== ENCOUNTER → 2020-04-14 | Outpatient (CLI) | payer MEDICARE | END | disposition home or self-care (01) | LOC: RADMRIMAIN 18:39 | DX: Z53.9 Procedure and treatment not carried out, unspecified reason (principal) ==

== ENCOUNTER 2020-09-15 14:50 | Emergency (ER) | payer MEDICARE ==
[2020-09-15 15:04] VITALS: BP 179/80; PULSE 84; RESP 18; TEMP 98.7
--- NOTE | 2020-09-15 15:44 | ED ---
Wound/Laceration HPI - General Chief Complaint: Wound/Laceration Stated Complaint: fall, head lac Source: patient, EMS, RN notes reviewed Mode of arrival: EMS Limitations: no limitations - History of Present Illness Initial Comments: 85-year-old white male, alert and oriented 4, is to the emergency room after losing his balance at the grocery store and following backward hitting the back of his head on the concrete. Patient states he did not lose consciousness. He does not take any blood thinners. He does state that he should be using a cane because he does have balance issues and he did not his cane. Patient has a skin tear and abrasion to the occiput with no active bleeding at this time. Patient denies any other injuries. Patient does have a history of coronary artery disease, hypertension, osteoarthritis, hypercholesterolemia and trigeminal neuralgia on the left. -: hour(s) (1) Location: scalp Place: other (Store) Patient Tetanus UTD: Yes (Within 5 years per pt) Context: accidental, fall Associated Symptoms: none - Related Data Home Medications Medication Instructions Recorded Confirmed Ezetimibe 5 mg PO DAILY 10/24/16 09/15/20 Aspirin EC [Ecotrin Low Dose] 81 mg PO DAILY 09/15/20 09/15/20 Atorvastatin [Lipitor] 40 mg PO DAILY 09/15/20 09/15/20 Baclofen 5 mg PO TID@0800,1500,2200 09/15/20 09/15/20 Pregabalin [Lyrica] 50 mg PO BID@0900,2130 09/15/20 09/15/20 amLODIPine BES/OLMESARTAN MED 1 tab PO DAILY 09/15/20 09/15/20 [Anali 10-40 mg Tablet] carBAMazepine [carBAMazepine ER] 100 mg PO BID@0900,2100 09/15/20 09/15/20 Allergies Allergy/AdvReac Type Severity Reaction Status Date / Time No Known Allergies Allergy Verified 09/15/20 16:39 Review of Systems ROS Statement: Those systems with pertinent positive or pertinent negative responses have been documented in the HPI. ROS Other: All systems not noted in ROS Statement are negative. 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 Past Anesthesia/Blood Transfusion Reactions: No Reported Reaction Past Psychological History: No Psychological Hx Reported Smoking Status: Never smoker Past Alcohol Use History: Occasional Past Drug Use History: None Reported - Past Family History Mother Family Medical History: Hypertension (mother at age of 87 from hypertension.) Father Family Medical History: CVA/TIA (father at age of 86 from CVA.) Brother(s) Family Medical History: No Reported History (patient had one brother who at age 95 from old age.) Sister(s) Family Medical History: No Reported History (patient had one sister who at age of 84 from old age.) Daughter(s) Family Medical History: No Reported History (patient has one daughter no major medical problems.) Son(s) Family Medical History: No Reported History (patient has one son no major medical problems.) General Exam Limitations: no limitations General appearance: alert, in no apparent distress Head exam: Present: other (Skin tear with abrasion on the occiput approximately 4 cm) Eye exam: Present: normal appearance, PERRL, EOMI. Absent: scleral icterus, conjunctival injection, periorbital swelling, periorbital tenderness Pupils: Present: normal accommodation ENT exam: Present: normal exam, normal oropharynx, mucous membranes moist Neck exam: Present: normal inspection, full ROM. Absent: tenderness, meningismus, lymphadenopathy, thyromegaly Respiratory exam: Present: normal lung sounds bilaterally. Absent: respiratory distress, wheezes, rales, rhonchi, stridor, chest wall tenderness, accessory muscle use, decreased breath sounds Cardiovascular Exam: Present: regular rate, normal rhythm, normal heart sounds. Absent: systolic murmur, diastolic murmur, rubs, gallop, clicks GI/Abdominal exam: Present: soft, normal bowel sounds. Absent: distended, tenderness, guarding, rebound, rigid Extremities exam: Present: normal inspection, full ROM, normal capillary refill, other (abrasion of the left knee). Absent: tenderness, pedal edema, joint swelling, calf tenderness Back exam: Present: normal inspection, full ROM. Absent: CVA tenderness (R), CVA tenderness (L), muscle spasm, paraspinal tenderness, vertebral tenderness, rash noted Neurological exam: Present: alert, oriented X3, CN II-XII intact Psychiatric exam: Present: normal affect, normal mood Skin exam: Present: warm, dry, intact, normal color, other (bruising left flank, old per pt). Absent: rash, cyanosis, diaphoretic, erythema, petechiae, pallor, mottled Course Vital Signs 09/15/20 14:54 Temperature 98.7 F Pulse Rate 84 Respiratory 18 Rate Blood Pressure 179/80 O2 Sat by Pulse 98 Oximetry Medical Decision Making - Medical Decision Making Patient is alert and oriented 4 denies any headaches, back pain approximately bleeding. Patient denies any other injuries from the fall the side a skin tear and abrasion to his occiput. CT brain and C-spine is negative for any acute process, and intracranial bleed or midline shift. Patient has a history of trigeminal neuralgia on the left and had a gamma knife procedure done 16 weeks ago. He states he has had this same pain for over [address] does show some Fluid in the inferior left mastoid air cells. Patient is agreeable to being discharged home and following up with his primary care doctor. Bacitracin dressing placed to the skin tear and abrasion on his occiput. Case discussed with Dr. Hale. Disposition Clinical Impression: Fall, Abrasion, Skin tear Disposition: HOME SELF-CARE Condition: Good Additional Instructions: Keep wound clean and dry, follow-up with the primary care doctor in 1 week. Return to the emergency room with worsening symptoms, headache, fever, nausea vomiting Is patient prescribed a controlled substance at d/c from ED?: No Referrals: Vitaliy Mckinney MD [Primary Care Provider] - 1-2 days Time of Disposition: 16:58
[2020-09-15] MEDS ORDERED: BACITRACIN OINT 1 EACH PACKET TOPICAL ONE (15:45)
--- NOTE | 2020-09-15 16:19 | CT ---
EXAMINATION TYPE: CT brain jacky wo con DATE OF EXAM: 09/15/2020 COMPARISON: Brain 10/23/2016 HISTORY: 85-year-old male Fall, posterior head injury. CT DLP: 1396.8 mGycm Automated exposure control for dose reduction was used. Technique: Examination of the head was done in axial plane without intravenous contrast. Coronal and sagittal reconstructions performed. CT of the cervical spine was obtained in axial plane without intravenous injection of contrast mater ial. Coronal and sagittal reformatted images were obtained from the axial views for evaluation of f ractures, spinal alignment and canal. FINDINGS: Head: There is no evidence of acute intracranial hemorrhage, acute ischemic changes, mass, mass-effect, or extra-axial fluid collection. There is no effacement of cerebral sulci or basal subarachnoid cister ns. There is no hydrocephalus. There is no midline shift. Schmidt-white matter distinction is preserv ed. Left posterolateral occipital rosaline hole with some adjacent hardware streak artifact. Mild generalized supratentorial volume loss with moderate patchy white matter hypodensities in both c erebral hemispheres. Mild posterior scalp contusion. No underlying calvarial fracture. Some trapped fluid in inferior left mastoid air cells. Paranasal sinuses appear clear. Orbits and adams bes appear intact. Cervical spine: No craniocervical junction abnormality, predental space widening, or prevertebral soft tissue swellin g. There is some degenerative bony ankylosis involving the right posterior elements in the upper to mid cervical spine. Moderate to advanced dissection plate degenerative change especially mid and lower ce rvical spine. Preserved alignment of the cervical spine. No acute fracture identified. Moderate left neuroforaminal stenosis at C3-C4, moderate left and [id number] right at C4-C5, se sriram left greater than right C5-C6, moderate right C6-C7, and moderate right greater than left C7-T1. Sagittal and coronal reformatted images confirm above findings. COMBINED IMPRESSION: 1. Mild posterior scalp contusion. No acute intracranial abnormality seen. Mild generalized atrophy a nd moderate patchy changes of chronic small vessel ischemic disease. Old rosaline hole posterior inferior left calvarium. 2. No acute fracture or malalignment of the cervical spine. 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 3. Some trapped fluid within the inferior left mastoid air cells. Correlate for any mastoid pain to e xclude mastoiditis.
== END 2020-09-15 17:05 | disposition home or self-care (01) ==
LOC: EC 14:50
DX: S01.01XA Laceration without foreign body of scalp, initial encounter (principal); S80.212A Abrasion, left knee, initial encounter; I10 Essential (primary) hypertension; I25.10 Atherosclerotic heart disease of native coronary artery without angina pectoris; E78.5 Hyperlipidemia, unspecified; E78.00 Pure hypercholesterolemia, unspecified; M19.90 Unspecified osteoarthritis, unspecified site; Z79.82 Long term (current) use of aspirin; Z79.899 Other long term (current) drug therapy; Z82.49 Family history of ischemic heart disease and other diseases of the circulatory system; W18.39XA Other fall on same level, initial encounter; Y92.89 Other specified places as the place of occurrence of the external cause; Y92.512 Supermarket, store or market as the place of occurrence of the external cause
CPT/HCPCS: 70450; 72125; 99284